=== PATIENT | female | born 1985 | race Caucasian/White ===

== ENCOUNTER 2016-12-27 13:09 | Emergency (ER) | payer OTHER ==
[~2016-12-27] VITALS: Ht 167.6 cm; Wt 80.0 kg
[2016-12-27 13:21] VITALS: TEMP 98.1
[2016-12-27 13:29] VITALS: BP 116/78; PULSE 82; RESP 16; O2SAT 99
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
[2016-12-27] MEDS ORDERED: ACETAMINOPHEN 325 MG TAB PO ONE (14:00)
[2016-12-27] MEDS ORDERED: LORazepam 2 MG/ML VIAL IV PUSH ONE (14:00)
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
[2016-12-27] MEDS ORDERED: ZOLO20CO PO (14:25)
[2016-12-27 15:16] VITALS: BP 114/71; PULSE 80; RESP 16; O2SAT 99
[2016-12-27] MEDS ORDERED: HYDR1ELX PO (15:49)
== END 2016-12-27 16:25 | disposition home or self-care (01) ==
LOC: NEPC 13:09
DX: F43.23 Adjustment disorder with mixed anxiety and depressed mood (principal); F32.9 Major depressive disorder, single episode, unspecified; I10 Essential (primary) hypertension
CPT/HCPCS: 96374; 99284; J2060